=== PATIENT | female | born 1990 | race Caucasian/White ===

== ENCOUNTER 2017-11-24 03:18 | Emergency (ER) | payer OTHER, MEDICAID ==
[~2017-11-24] VITALS: Ht 160 cm; Wt 86.2 kg
[2017-11-24 03:41] VITALS: BP 119/82; Ht 160 cm; Wt 86.2 kg
== END 2017-11-24 05:56 | disposition left against medical advice (07) ==
LOC: ED 03:18
DX: Z53.21 Procedure and treatment not carried out due to patient leaving prior to being seen by health care provider (principal)